=== PATIENT | female | born 1965 | race American Indian/Alaskan Native ===

== ENCOUNTER 2019-01-22 05:36 | Emergency (ER) | payer SELFPAY ==
[2019-01-22 06:41] LABS: Basophils % (Auto) 0.3 % (0.0-1.8); Eosinophils % (Auto) 0.1 % (0.0-4.3); Hematocrit 40.9 % (30.3-42.9); Hemoglobin 14.5 gm/dl (10.1-14.3); Lymphocytes # (Auto) 0.8 K/mm3 (1.2-5.4); Lymphocytes % (Auto) 13.4 % (13.4-35.0); Mean Corpuscular HGB Conc 36 % (30-34); Mean Corpuscular Volume 84 fl (79-97); Monocytes # (Auto) 0.5 K/mm3 (0.0-0.8); Platelet Count 143 K/mm3 (140-440); Red Blood Count 4.89 M/mm3 (3.65-5.03); Red Cell Distribution Width 14.2 % (13.2-15.2)
[2019-01-22] MEDS ORDERED: NACL 0.9% 1000 ML 1,000 ML IV ONE (06:46)
[2019-01-22] MEDS ORDERED: ZOFRAN IV ONE (06:46)
--- NOTE | 2019-01-22 06:46 | Emergency Department Report ---
ED Abdominal Pain HPI - General Chief Complaint: Nausea/Vomiting/Diarrhea Stated Complaint: VOMTING X7 DAYS FEVER CHILLS Time Seen by Provider: 01/22/19 06:41 Source: patient Mode of arrival: Ambulatory Limitations: No Limitations - History of Present Illness Initial Comments: Patient is a 53-year-old female that presents emergency room for abdominal pain, nausea, vomiting and diarrhea. Patient states that her symptoms started 7 days ago. Patient states the abdominal pain is a 10 out of 10 and is nonradiating and generalized. Patient states that approximately 48 hours ago she stopped having diarrhea and continued to have nausea and vomiting and stopping of the tolerated by mouth intake. Patient states that her symptoms are worsening. Patient states that minimal intake over the past 7 days. Patient states she's had fever and chills. MD Complaint: abdominal pain -: Sudden Location: diffuse Radiation: none Migration to: no migration Severity: severe Severity scale (0 -10): 10 Quality: stabbing Consistency: intermittent Improves With: rest Worsens With: vomiting, movement Associated Symptoms: nausea, vomiting, diarrhea, fever, chills. denies: constipation, dysuria, hematemesis, hematochezia, melena, hematuria, anorexia - Related Data LMP (females 10-50): 1 month Previous Rx's Medication Instructions Recorded Last Taken Type Ondansetron [Zofran Odt] 4 mg PO Q8HR PRN #12 tab.rapdis 01/22/19 Unknown Rx Allergies Allergy/AdvReac Type Severity Reaction Status Date / Time No Known Allergies Allergy Unverified 01/22/19 05:56 ED Review of Systems ROS: Stated complaint: VOMTING X7 DAYS FEVER CHILLS Other details as noted in HPI Constitutional: denies: chills, fever Eyes: denies: eye pain, eye discharge, vision change ENT: denies: ear pain, throat pain Respiratory: denies: cough, shortness of breath, wheezing Cardiovascular: denies: chest pain, palpitations Endocrine: no symptoms reported Gastrointestinal: abdominal pain, nausea, vomiting, diarrhea. denies: constipation, hematemesis, melena, hematochezia Genitourinary: denies: urgency, dysuria, discharge Musculoskeletal: denies: back pain, joint swelling, arthralgia Skin: denies: rash, lesions Neurological: denies: headache, weakness, paresthesias Psychiatric: denies: anxiety, depression Hematological/Lymphatic: denies: easy bleeding, easy bruising ED Past Medical Hx - Past Medical History Previous Medical History?: No - Surgical History Past Surgical History?: No - Family History Family history: no significant - Social History Smoking Status: Never Smoker Substance Use Type: None - Medications Home Medications: Home Medications Medication Instructions Recorded Confirmed Last Taken Type Ondansetron [Zofran Odt] 4 mg PO Q8HR PRN #12 tab.rapdis 01/22/19 Unknown Rx ED Physical Exam - General Limitations: No Limitations General appearance: alert, in no apparent distress - Head Head exam: Present: atraumatic, normocephalic - Eye Eye exam: Present: normal appearance - ENT ENT exam: Present: mucous membranes moist - Neck Neck exam: Present: normal inspection - Respiratory Respiratory exam: Present: normal lung sounds bilaterally. Absent: respiratory distress - Cardiovascular Cardiovascular Exam: Present: regular rate, normal rhythm. Absent: systolic murmur, diastolic murmur, rubs, gallop - GI/Abdominal GI/Abdominal exam: Present: soft, normal bowel sounds. Absent: distended, tenderness, guarding - Extremities Exam Extremities exam: Present: normal inspection - Back Exam Back exam: Present: normal inspection - Neurological Exam Neurological exam: Present: alert, oriented X3 - Psychiatric Psychiatric exam: Present: normal affect, normal mood - Skin Skin exam: Present: warm, dry, intact, normal color. Absent: rash ED Course Vital Signs 01/22/19 01/22/19 01/22/19 05:39 06:33 06:35 Temperature 97.9 F 99.9 F H Pulse Rate 96 H 96 H 94 H Respiratory 20 32 H 24 Rate Blood Pressure 114/78 Blood Pressure 121/70 [Left] O2 Sat by Pulse 96 97 99 Oximetry 01/22/19 01/22/19 01/22/19 06:45 07:00 07:15 Temperature Pulse Rate 93 H 96 H 95 H Respiratory 26 H 21 27 H Rate Blood Pressure 115/76 99/53 99/53 Blood Pressure [Left] O2 Sat by Pulse 99 99 Oximetry 01/22/19 01/22/19 01/22/19 07:30 07:45 08:01 Temperature Pulse Rate 90 89 88 Respiratory 20 25 H 23 Rate Blood Pressure 91/52 124/69 Blood Pressure [Left] O2 Sat by Pulse 97 96 97 Oximetry 01/22/19 01/22/19 01/22/19 08:15 08:30 10:59 Temperature Pulse Rate 90 94 H Respiratory 18 31 H 17 Rate Blood Pressure 124/69 116/64 116/64 Blood Pressure [Left] O2 Sat by Pulse 97 100 Oximetry 01/22/19 11:00 Temperature Pulse Rate Respiratory 22 Rate Blood Pressure 105/54 Blood Pressure [Left] O2 Sat by Pulse Oximetry - Reevaluation(s) Reevaluation #1: Discussed all results with patient. Patient states that her pain is better. Rick dave states her nausea has resolved. Patient states her pain has resolved. Patient will be given a by mouth challenge. Patient still has IV fluids running and only has received 500 mils of the liter. Patient agrees to plan of care. 01/22/19 10:04 Patient tolerated by mouth food and by mouth fluids. Discussed all results with patient. Patient is stable for discharge. Patient will be discharged home.. Patient agrees to plan of care.. Patient given discharge instructions. Patient voiced understanding of discharge instructions.. 01/22/19 11:12 ED Medical Decision Making - Lab Data Result diagrams: 01/22/19 06:29 01/22/19 06:29 - Radiology Data Radiology results: report reviewed CT ABDOMEN PELVIS WITH CONTRAST: HISTORY: Abdominal pain, nausea and vomiting. COMPARISON: none. TECHNIQUE: Helical CT in 1.25mm intervals following IV contrast. Sagittal and coronal reconstructions. FINDINGS: Lung bases: Normal. Liver: Normal. Biliary system: Normal. Pancreas: Normal. Spleen: Normal. Kidneys/ureters/bladder: Normal. Adrenal glands: Normal. Aorta: Normal. Intestines: Normal. Appendix: Normal. Pelvic viscera: The uterus is mildly enlarged with multiple fibroids ranging from 1-3 cm in diameter. A 1 x 2 cm right ovarian cyst is identified. Ascites: None. Adenopathy: None. Musculoskeletal: Normal. IMPRESSION: No acute abdominal process is identified. Uterine fibroid disease. Right ovarian cyst. - Medical Decision Making Patient is a 53-year-old female that presents emergency room with abdominal pain and nausea vomiting. All of the patient's symptoms resolved in the ER. Patient responded well to therapy. Patient was discharged home. Patient given discharge instructions. Patient's labs essentially unremarkable. CT negative except for ovarian cyst. Patient struck to follow-up with [facility] and her PCP - Differential Diagnosis gastroenteritis. Viral. Abdominal pain. Nausea vomiting diarrhea. Critical care attestation.: If time is entered above; I have spent that time in minutes in the direct care of this critically ill patient, excluding procedure time. ED Disposition Clinical Impression: Dehydration, Gastroenteritis, Nausea vomiting and diarrhea Abdominal pain Qualifiers: Abdominal location: generalized Qualified Code(s): R10.84 - Generalized abdominal pain Ovarian cyst Qualifiers: Laterality: unspecified laterality Qualified Code(s): N83.209 - Unspecified ovarian cyst, unspecified side Fever Qualifiers: Fever type: unspecified Qualified Code(s): R50.9 - Fever, unspecified Disposition: TO HOME OR SELFCARE Is pt being admited?: No Does the pt Need Aspirin: No Condition: Stable Instructions: Traveler's Diarrhea (ED), Dehydration (ED), Diet for Ulcers and Gastritis (ED), Gastroenteritis (ED), Acute Nausea and Vomiting (ED), Abdominal Pain (ED) Additional Instructions: Patient to follow-up with primary care in 2-3 days. Patient to take Tylenol or ibuprofen when necessary for pain. Patient to return to ER if condition worsens. Patient to increase water. Patient to rest. Patient to continue all meds. Prescriptions: Ondansetron [Zofran Odt] 4 mg PO Q8HR PRN #12 tab.rapdis PRN Reason: Nausea And Vomiting Referrals: DIO ISRAEL MD [Primary Care Provider] - 2-3 Days VIKKI SAENZ MD [Staff Physician] - 2-3 Days Time of Disposition: 11:16
[2019-01-22 07:29] LABS: Alanine Aminotransferase 18 units/L (7-56); Albumin 3.6 g/dL (3.9-5); BUN/Creatinine Ratio 9; Blood Urea Nitrogen 8 mg/dL (7-17); Calcium 8.7 mg/dL (8.4-10.2); Hemolysis Index 8
--- NOTE | 2019-01-22 09:20 | Cat Scan Report ---
CT ABDOMEN PELVIS WITH CONTRAST: HISTORY: Abdominal pain, nausea and vomiting. COMPARISON: none. TECHNIQUE: Helical CT in 1.25mm intervals following IV contrast. Sagittal and coronal reconstructions. FINDINGS: Lung bases: Normal. Liver: Normal. Biliary system: Normal. Pancreas: Normal. Spleen: Normal. Kidneys/ureters/bladder: Normal. Adrenal glands: Normal. Aorta: Normal. Intestines: Normal. Appendix: Normal. Pelvic viscera: The uterus is mildly enlarged with multiple fibroids ranging from 1-3 cm in diameter. A 1 x 2 cm right ovarian cyst is identified. Ascites: None. Adenopathy: None. Musculoskeletal: Normal. IMPRESSION: No acute abdominal process is identified. Uterine fibroid disease. Right ovarian cyst.
[2019-01-22 10:51] LABS: Bilirubin,Urine NEG (Negative); Blood,Urine SM (Negative); Color,Urine Yellow (Yellow); Mucus,Urine FEW /HPF; Urobilinogen,Urine < 2.0 mg/dL (<2.0)
[2019-01-22] MEDS ORDERED: MORPHINE IV ONE (11:11)
[2019-01-22 11:12] VITALS: BP 105/54
[2019-01-22] MEDS ORDERED: ZOFRAN ODT PO ONE (11:30)
== END 2019-01-22 11:42 | disposition home or self-care (01) ==
LOC: ED 05:36
DX: E86.0 Dehydration (principal); K52.9 Noninfective gastroenteritis and colitis, unspecified; N83.209 Unspecified ovarian cyst, unspecified side
CPT/HCPCS: 36415; 74177; 80053; 81001; 83690; 84703; 85025; 96361; 96374; 99284; J2405; J7030; Q9967; Q0162